=== PATIENT | female | born 1960 | race Caucasian/White ===

== ENCOUNTER 2024-02-15 18:04 | Inpatient (IN) ==
--- NOTE | 2024-02-15 18:48 | Emergency Department Note ---
Impression & Plan Preseptal cellulitis of left eye, Cellulitis, Leukocytosis ED Provider Note NAME: KRISTA HUTTON AGE: 63 SEX: F : 1960 ARRIVES VIA: Walk-In INFORMANT: Patient ED PROVIDER(S): Andrade Davis DO CHIEF COMPLAINT: swelling of left eye HPI: Patient is a 63-year-old female with a past medical history of cervical radiculopathy who presents to the ER for redness and swelling of the left side of the face. Initially started this past Sunday with itching around the eyes and redness. Gradually progressed. She started drops yesterday. She notes that today it swollen shut and she cannot see. She denies any headache or change in vision if she pries her eye open. No pain with movement of the eye. No chest pain or shortness of breath. No nausea, vomiting, or diarrhea. ADDITIONAL HISTORY OBTAINED: Additional history is provided by family who is present at bedside who notes that she does not want to stay in the hospital. Chronic Medical/Social Conditions Affecting Care: Per HPI PAST MEDICAL HISTORY:See Below PAST SURGICAL HISTORY:See Below FAMILY HISTORY:See Below SOCIAL HISTORY:See Below HOME MEDICATIONS:See Below ALLERGIES:See Below VITALS:See Below PHYSICAL EXAMINATION: GENERAL: Sitting up in bed, alert, well appearing, well nourished, no distress, non-toxic EYE EXAM: Lids nearly swollen shut with erythema around the upper and lower lid. Green purulent drainage. Normal conjunctiva. PERRL and EOM's grossly intact. OROPHARYNX: no exudate, no erythema, lips, buccal mucosa, and tongue normal and mucous membranes are moist NECK: supple, no nuchal rigidity, no adenopathy, non-tender LUNGS: Clear to auscultation. Normal chest wall mechanics HEART: no murmurs, S1 normal and S2 normal ABDOMEN: abdomen soft, non-tender, normo-active bowel sounds, no masses, no rebound or guarding. UPPER EXTREMITIES: upper extremities are grossly normal. LOWER EXTREMITIES: No pitting edema. NEURO EXAM: Normal sensorium, cranial nerves II-XII grossly intact, normal speech, no gross weakness of arms, no gross weakness of legs. MEDICAL DECISION MAKING: Patient is a 63-year-old female who presents ER for the above-stated complaint. IV was established blood work was obtained. Labs show leukocytosis of 15,000. No significant anemia. BMP was fairly unremarkable. Clinically on exam she has no pain with movement of her eye. I do feel this consistent with a preseptal cellulitis. External records were reviewed from Dr. Titus's note as he called in. Patient was given IV Rocephin and vancomycin. Patient was given Dilaudid. She is updated bedside. Discussed with the hospitalist. CT of the face does show inflammation/cellulitis. Case was discussed with the hospitalist patient was admitted for further workup of her preseptal cellulitis. There is no abscess on CT. Consults/Care Managements Discussions: Per [facility] Triage Nursing notes reviewed. Limited review of prior medical records performed Vital Signs: reviewed and remarkable for no significant abnormalities Differential diagnosis: Cellulitis, abscess, MRSA infection, DVT, necrotizing fasciitis, dermatitis, drug eruption, allergic reaction, as well as other pathologies. ER treatment provided: See below Diagnostics interpreted by me include EKG and cardiac monitoring as listed below: -Cardiac Monitoring: An order was placed for continuous cardiac monitoring. The monitor shows a rate of 80 with sinus rhythm. -Laboratory studies:Interpreted by me as stated above in MDM and shown below. Imaging studies: Xrays: As interpreted by me: None CTs show: CT of the face described above Procedures: None Critical Care: None Past Med/Surg History Problem List (Updated 02/15/24 @ 22:20 by Andrade Davis DO) Leukocytosis (Acute) Cellulitis (Acute) Preseptal cellulitis of left eye (Acute) Cervical radicular pain (Acute) Social History Smoking Status: Former smoker Tobacco Type: Cigarettes Preferred Language: Hebrew Feels Safe at Home: Yes Allergies Allergies Allergy/AdvReac Type Severity Reaction Status Date / Time yellow dye Allergy Hives Verified 02/15/24 20:20 Home Meds Home Medications Medication Instructions Recorded Confirmed ketoconazole 2 % topical cream 1 applic topical DIRECTED 02/15/24 02/15/24 ketorolac 0.5 % eye drops 1 drp OPB DIRECTED 02/15/24 02/15/24 polymyxin B sulfate 10,000 1 drp OPL DIRECTED 02/15/24 02/15/24 unit-trimethoprim 1 mg/mL eye drops prednisone 20 mg tablet 20 mg PO .TAPER UD 02/15/24 02/15/24 Results & Data (ED) Vital Signs Vital Signs - 24 hr 02/15/24 18:18 02/15/24 19:36 02/15/24 19:36 Temperature 36.7 C Temperature Source Temporal Artery Scan Pulse Rate 79 Pulse Rate [Apical] 75 Respiratory Rate 20 20 Respiratory Effort / Characteristics Non-Labored Spontaneous Respiratory Depth Normal Blood Pressure 123/78 Blood Pressure [Right Arm] 126/68 Blood Pressure Mean 93 Blood Pressure Mean [Right Arm] 87 Pulse Oximetry 92 94 94 Oxygen Delivery Method Room Air Room Air Sepsis Recent Fever Within 48 Hours No Sepsis New/Unexplained Change in Mental Status N/A Sepsis Action Taken by Nursing No Action Required 02/15/24 19:42 Temperature Temperature Source Pulse Rate 73 Pulse Rate [Apical] Respiratory Rate Respiratory Effort / Characteristics Respiratory Depth Blood Pressure Blood Pressure [Right Arm] Blood Pressure Mean Blood Pressure Mean [Right Arm] Pulse Oximetry Oxygen Delivery Method Sepsis Recent Fever Within 48 Hours Sepsis New/Unexplained Change in Mental Status Sepsis Action Taken by Nursing Laboratory Data 02/15/24 18:35 02/15/24 18:35 Lab Results 02/15/24 02/15/24 Range/Units 18:35 18:50 WBC 15.55 H (4.8-10.8) K/ul RBC 4.55 (4.20-5.40) M/uL Hgb 15.5 (12.0-16.0) g/dl POC Hgb 13.9 (12.0-16.0) g/dl Hct 44.9 (37.0-47.0) % POC Hct 41 (37-47) % MCV 98.7 (80.0-100.0) fL MCH 34.1 H (25.0-34.0) pg MCHC 34.5 (32.0-36.0) g/dL RDW Std Deviation 45.2 (36.4-46.3) fL RDW Coeff of Andrea 12.4 (11.5-14.5) % Plt Count 229 (130-400) K/uL MPV 9.6 (9.4-12.4) fL Immature Gran % (Auto) 0.7 % Neut % (Auto) 72.3 % Lymph % (Auto) 20.4 % [place] % (Auto) 5.3 % Eos % (Auto) 1.0 % Baso % (Auto) 0.3 % Neut # (Auto) 11.24 H (1.40-6.50) K/uL Lymph # (Auto) 3.17 (1.20-3.40) K/uL [place] # (Auto) 0.83 H (0.11-0.59) K/uL Eos # (Auto) 0.15 (0.00-0.50) K/uL Baso # (Auto) 0.05 (0.00-0.20) K/uL Immature Gran # (Auto) 0.11 (0.01-0.20) K/uL POC Sodium 136 (135-144) mmol/L Sodium 135 L (136-145) mmol/L POC Potassium 4.2 (3.3-5.0) mmol/L Potassium 3.9 (3.5-5.1) mmol/L POC Chloride 102 (101-112) mmol/L Chloride 101 (98-107) mmol/L Carbon Dioxide 26 (21-32) mmol/L POC Total CO2 24 (24-31) mmol/L Anion Gap 8 (3-11) POC Anion Gap 15.0 L (16-25) mmol/L POC BUN 19 H (7-18) mg/dl BUN 18 (6-23) mg/dl Creatinine 0.79 (0.6-1.2) mg/dl POC Creatinine 0.8 (0.6-1.3) mg/dl Est Cr Clr Drug Dosing 69.9 ml/min Est GFR ( Amer) 92.3 ml/min Est GFR (Non-Af Amer) 79.7 ml/min BUN/Creatinine Ratio 22.8 H (10-20) Glucose 119 H (70-99(Fasting)) mg/dl POC Glucose (other) 117 H (70-99) mg/dl Calcium 10.3 (8.6-10.3) mg/dl POC Ioniz Calcium Randal 1.18 (1.12-1.32) mmol/l Administered Medications Discontinued Medications Hydromorphone HCl (Hydromorphone Inj 0.5 Mg/0.5 Ml Syr) 0.25 mg IV NOW STA Stop: 02/15/24 20:29 Last Admin: 02/15/24 20:33 Dose: 0.25 mg Documented By: SHELLY Vancomycin HCl 1,500 mg/ (Sodium Chloride) 530 mls @ 200 mls/hr IV NOW ONE Stop: 02/15/24 22:04 Last Admin: 02/15/24 19:47 Dose: 200 mls/hr Documented By: SHELLY Ceftriaxone Sodium (Rocephin) 2,000 mg in 50 mls @ 100 mls/hr IV NOW STA Stop: 02/15/24 19:55 Last Infusion: 02/15/24 20:13 Dose: Infused Documented By: Admin: 02/15/24 19:30 Dose: 100 mls/hr Documented By: SHELLY Ioversol (Optiray 320 100ml) 93 ml IV ONCE ONE Stop: 02/15/24 19:22 Last Admin: 02/15/24 19:21 Dose: 93 ml Documented By: KYM Ketorolac Tromethamine (Ketorolac Tromethamine 15 Mg/Ml Vial) 10 mg IV NOW ONE Stop: 02/15/24 19:31 Last Admin: 02/15/24 19:35 Dose: 10 mg Documented By: SHELLY Ofloxacin (Ofloxacin 0.3% 75 Drops/5 Ml Btl) 2 drops OPB NOW STA Stop: 02/15/24 19:32 Last Admin: 02/15/24 19:47 Dose: 2 drops Documented By: SHELLY Imaging Data Radiologist's Impression: Face CT 02/15/24 18:44 Exam(s): CT FACIAL With Contrast IV Amt: 93 ml opti 320 EXAM: CT Maxillofacial With Intravenous Contrast CLINICAL HISTORY: Reason for exam: swelling around left eye. TECHNIQUE: Axial computed tomography images of the face with intravenous contrast. CTDI is 7.19 mGy and DLP is 146.09 mGy-cm. Automated exposure control was utilized for the study. A dose lowering technique was utilized adhering to the principles of ALARA. CONTRAST: Patient received 93 ml opti 320 of IV contrast COMPARISON: None. FINDINGS: Diagnostic sensitivity of the exam is reduced by motion and metallic artifacts. Orbits: Significant left periorbital and left preseptal space soft tissue edema and swelling is demonstrated. (series 301 image 51, series 2 image 17). Bilaterally the intraconal and extraconal orbital spaces are unremarkable. Facial bones/joints: No acute fracture. Remaining soft tissues: Unremarkable. Sinuses: Unremarkable. No air-fluid levels. Other findings: At C5-C6: Moderate degenerative disc/endplate spondylitic changes. . IMPRESSION: Motion artifact. Left periorbital and left preseptal space soft tissue edema/swelling. No facial bone acute fracture identified. . Electronically signed by: Jossie Barker MD, ROMIE 02/15/24 20:13 PM Discharge Plan Visit Data Chief Complaint: Eye Problems Stated Complaint: CELLULITIS IN LT EYE/EDEMA/PAIN ED Provider: Andrade Davis Discharge Problem: Preseptal cellulitis of left eye, Cellulitis, Leukocytosis Patient Disposition: Admitted As Inpatient Discharge Instructions Interventions: ED Discharge Assessment Last Done: 02/15/24 21:47 Discharge Problem: Cellulitis Qualifiers: Site of cellulitis: periorbital Laterality: left Qualified Code(s): L03.213 - Periorbital cellulitis Leukocytosis Qualifiers: Leukocytosis type: unspecified Qualified Code(s): D72.829 - Elevated white blood cell count, unspecified
[2024-02-15 18:57] LABS: Basophils # (auto) 0.05 K/uL (0.00-0.20); Basophils % (auto) 0.3 %; Eosinophils # (auto) 0.15 K/uL (0.00-0.50); Hematocrit (blood only) 44.9 % (37.0-47.0); Hemoglobin 15.5 g/dl (12.0-16.0); Immature Granulocytes # (auto) 0.11 K/uL (0.01-0.20); Immature Granulocytes % (auto) 0.7 %; Lymphocytes # (auto) 3.17 K/uL (1.20-3.40); Lymphocytes % (auto) 20.4 %; Mean Corpuscular Hemoglobin 34.1 pg (25.0-34.0); Mean Corpuscular Hgb Conc 34.5 g/dL (32.0-36.0); Mean Corpuscular Volume 98.7 fL (80.0-100.0); Mean Platelet Volume 9.6 fL (9.4-12.4); Monocytes # (auto) 0.83 K/uL (0.11-0.59); Monocytes % (auto) 5.3 %; Neutrophils # (auto) 11.24 K/uL (1.40-6.50); Neutrophils % (auto) 72.3 %; Platelet Count 229 K/uL (130-400); RDW Coefficient of Variation 12.4 % (11.5-14.5); RDW Standard Deviation 45.2 fL (36.4-46.3); Red Blood Count 4.55 M/uL (4.20-5.40); White Blood Count 15.55 K/ul (4.8-10.8)
[2024-02-15 19:04] LABS: iSTAT Creatinine 0.8 mg/dl (0.6-1.3); iSTAT Hemoglobin 13.9 g/dl (12.0-16.0); iSTAT Ionized Calcium 1.18 mmol/l (1.12-1.32); iSTAT Potassium 4.2 mmol/L (3.3-5.0)
[2024-02-15 19:16] LABS: BUN Creatinine Ratio 22.8 (10-20); Calcium 10.3 mg/dl (8.6-10.3); Creatinine Clr Calc Pharmacy 69.9 ml/min; Est GFR (African American) 92.3 ml/min; Est GFR (Non-African American) 79.7 ml/min; Potassium 3.9 mmol/L (3.5-5.1)
[2024-02-15] MEDS: OPTIRAY 320 100ml IV ONE (19:21)
[2024-02-15] MEDS ORDERED: VANCOMYCIN CONSULT ACTIVE PRN (19:26)
[2024-02-15] MEDS: cefTRIAXone SODIUM 2,000 MG/50 ML BAG IV STA (19:30)
[2024-02-15] MEDS: KETOROLAC TROMETHAMINE 15 MG/ML VIAL IV ONE (19:35)
[2024-02-15] MEDS: VANCOMYCIN HCL 1,500 MG in SODIUM CHLORIDE 0.9% 500 ML IV ONE (19:47)
[2024-02-15] MEDS: OFLOXACIN 0.3% 75 DROPS/5 ML BTL OPB STA (19:47)
--- NOTE | 2024-02-15 20:14 | CT Scan Report ---
Exam(s): CT FACIAL With Contrast IV Amt: 93 ml opti 320 EXAM: CT Maxillofacial With Intravenous Contrast CLINICAL HISTORY: Reason for exam: swelling around left eye. TECHNIQUE: Axial computed tomography images of the face with intravenous contrast. CTDI is 7.19 mGy and DLP is 146.09 mGy-cm. Automated exposure control was utilized for the study. A dose lowering technique was utilized adhering to the principles of ALARA. CONTRAST: Patient received 93 ml opti 320 of IV contrast COMPARISON: None. FINDINGS: Diagnostic sensitivity of the exam is reduced by motion and metallic artifacts. Orbits: Significant left periorbital and left preseptal space soft tissue edema and swelling is demonstrated. (series 301 image 51, series 2 image 17). Bilaterally the intraconal and extraconal orbital spaces are unremarkable. Facial bones/joints: No acute fracture. Remaining soft tissues: Unremarkable. Sinuses: Unremarkable. No air-fluid levels. Other findings: At C5-C6: Moderate degenerative disc/endplate spondylitic changes. . IMPRESSION: Motion artifact. Left periorbital and left preseptal space soft tissue edema/swelling. No facial bone acute fracture identified. . Electronically signed by: Jossie Barker MD, DABR 02/15/24 20:13 PM
[2024-02-15] MEDS: HYDROmorphone INJ 0.5 MG/0.5 ML SYR IV STA (20:33)
--- NOTE | 2024-02-15 20:41 | History & Physical Report ---
Date of Service February 15, 2024 Assessment & Plan (1) Preseptal cellulitis of left eye: Plan: 63-year-old female with past medical history significant for dyslipidemia presents with swelling and pain around the left eye. Started Sunday but got progressively worse. Left eyelid is significantly swollen. No pain on movement of eyes. No injury to the area. No recent sinus infection. No dental pain. Having headaches. Vision is okay. No runny nose or sore throat. No cough. No difficulty swallowing. No chest pain or shortness of breath. No nausea. No abdominal pain. Normal bowel and bladder movements. Ambulating okay. Hemodynamics are okay. Preseptal cellulitis of left eye No painful eye movements No obvious proptosis seen Facial CT shows left periorbital and left preseptal space soft tissue edema/swelling On empiric IV Vanco and Rocephin and ofloxacin drops d/w ophthalmology on tiger text: "As ct scan not showing orbital involvement was advised to continue antibiotics and monitor for change to painful eye movements, decrease in vision or if the eye itself becomes red which would be signs of orbital involvement be signs of orbital involvement" Pain control Close monitor DVT prophylaxis SCDs. Disposition Medical floor History of Present Illness Chief Complaint: Left eye preseptal cellulitis Primary Care Provider: Reyes De La Garza MD 63-year-old female with past medical history significant for dyslipidemia presents with swelling and pain around the left eye. Started Sunday but got progressively worse. Left eyelid is significantly swollen. No pain on movement of eyes. No injury to the area. No recent sinus infection. No dental pain. Having headaches. Vision is okay. No runny nose or sore throat. No cough. No difficulty swallowing. No chest pain or shortness of breath. No nausea. No abdominal pain. Normal bowel and bladder movements. Ambulating okay. Hemodynamics are okay. Past medical history. As mentioned above Past surgical history. Dental surgery. Oophorectomy. Total abdominal hysterectomy Social history. . Smoked 0.5 pack a day for 10 years. Alcohol rarely. No drug use. Family history. Father had cancer. Mother had CHF and valvular heart disease. Allergies Allergy/AdvReac Type Severity Reaction Status Date / Time yellow dye Allergy Hives Verified 02/15/24 20:20 Home Medications Medication Instructions Recorded Confirmed Type ketoconazole 2 % topical cream 1 applic topical DIRECTED 02/15/24 02/15/24 History ketorolac 0.5 % eye drops 1 drp OPB DIRECTED 02/15/24 02/15/24 History polymyxin B sulfate 10,000 1 drp OPL DIRECTED 02/15/24 02/15/24 History unit-trimethoprim 1 mg/mL eye drops prednisone 20 mg tablet 20 mg PO .TAPER UD 02/15/24 02/15/24 History Past Med/Surg History Problem List (Updated 02/15/24 @ 22:20 by Andrade Davis, ) Leukocytosis (Acute) Cellulitis (Acute) Preseptal cellulitis of left eye (Acute) Cervical radicular pain (Acute) Social History Smoking Status: Current every day smoker Tobacco Type: Cigarettes Cigarettes Per Day: pack a day; Second Hand Exposure: No; Do You Dip or Chew Tobacco: No; Tobacco Cessation Education Requested by Patient: No Hx Alcohol Use: No Hx Substance Use: No Preferred Language: Faroese Communication Ability: Effective Physics Department Chair Required: No Beliefs That Will Affect Care: None Current Living Situation: Spouse Feels Safe at Home: Yes Safety Concerns: Feels Safe At This Time Review of Systems Review of Systems: All systems reviewed & are unremarkable except as noted in HPI & below Physical Exam Physical Exam: General- Not in acute distress. Head- atraumatic Eyes- Left eye region swollen and mildly erythematous. EOMI, no painful eye movement, vision ok ENT- oropharynx clear Neck- supple, no JVD Lungs- clear to auscultation no wheezing or crackles. Heart- regular rhythm; no murmur, no gallop. Abdomen- normal bowel sounds, soft, nontender, no distension Extremities- no pretibial edema, no erythema seen. Neuro- alert, oriented EOMI; no facial palsy; no dysarthria; moves extremities Results & Data Results & Data Vital Signs (Past 12 Hours) Vital Signs Temp Pulse Pulse Resp BP BP Pulse Ox 02/15/24 19:42 73 02/15/24 19:36 94 02/15/24 19:36 75 20 126/68 94 02/15/24 18:18 36.7 C 79 20 123/78 92 O2 Del Method 02/15/24 19:42 02/15/24 19:36 Room Air 02/15/24 19:36 02/15/24 18:18 Room Air Diagnostic Findings Laboratory Results WBC 15.55 K/ul (4.8-10.8) H 02/15/24 18:35 RBC 4.55 M/uL (4.20-5.40) 02/15/24 18:35 Hgb 15.5 g/dl (12.0-16.0) 02/15/24 18:35 POC Hgb 13.9 g/dl (12.0-16.0) 02/15/24 18:50 Hct 44.9 % (37.0-47.0) 02/15/24 18:35 POC Hct 41 % (37-47) 02/15/24 18:50 MCV 98.7 fL (80.0-100.0) 02/15/24 18:35 MCH 34.1 pg (25.0-34.0) H 02/15/24 18:35 MCHC 34.5 g/dL (32.0-36.0) 02/15/24 18:35 RDW Std Deviation 45.2 fL (36.4-46.3) 02/15/24 18:35 RDW Coeff of Andrea 12.4 % (11.5-14.5) 02/15/24 18:35 Plt Count 229 K/uL (130-400) 02/15/24 18:35 MPV 9.6 fL (9.4-12.4) 02/15/24 18:35 Immature Gran % (Auto) 0.7 % 02/15/24 18:35 Neut % (Auto) 72.3 % 02/15/24 18:35 Lymph % (Auto) 20.4 % 02/15/24 18:35 [place] % (Auto) 5.3 % 02/15/24 18:35 Eos % (Auto) 1.0 % 02/15/24 18:35 Baso % (Auto) 0.3 % 02/15/24 18:35 Neut # (Auto) 11.24 K/uL (1.40-6.50) H 02/15/24 18:35 Lymph # (Auto) 3.17 K/uL (1.20-3.40) 02/15/24 18:35 [place] # (Auto) 0.83 K/uL (0.11-0.59) H 02/15/24 18:35 Eos # (Auto) 0.15 K/uL (0.00-0.50) 02/15/24 18:35 Baso # (Auto) 0.05 K/uL (0.00-0.20) 02/15/24 18:35 Immature Gran # (Auto) 0.11 K/uL (0.01-0.20) 02/15/24 18:35 POC Sodium 136 mmol/L (135-144) 02/15/24 18:50 Sodium 135 mmol/L (136-145) L 02/15/24 18:35 POC Potassium 4.2 mmol/L (3.3-5.0) 02/15/24 18:50 Potassium 3.9 mmol/L (3.5-5.1) 02/15/24 18:35 POC Chloride 102 mmol/L (101-112) 02/15/24 18:50 Chloride 101 mmol/L (98-107) 02/15/24 18:35 Carbon Dioxide 26 mmol/L (21-32) 02/15/24 18:35 POC Total CO2 24 mmol/L (24-31) 02/15/24 18:50 Anion Gap 8 (3-11) 02/15/24 18:35 POC Anion Gap 15.0 mmol/L (16-25) L 02/15/24 18:50 POC BUN 19 mg/dl (7-18) H 02/15/24 18:50 BUN 18 mg/dl (6-23) 02/15/24 18:35 Creatinine 0.79 mg/dl (0.6-1.2) 02/15/24 18:35 POC Creatinine 0.8 mg/dl (0.6-1.3) 02/15/24 18:50 Est Cr Clr Drug Dosing 69.9 ml/min 02/15/24 18:35 Est GFR ( Amer) 92.3 ml/min 02/15/24 18:35 Est GFR (Non-Af Amer) 79.7 ml/min 02/15/24 18:35 BUN/Creatinine Ratio 22.8 (10-20) H 02/15/24 18:35 Glucose 119 mg/dl (70-99(Fasting)) H 02/15/24 18:35 POC Glucose (other) 117 mg/dl (70-99) H 02/15/24 18:50 Calcium 10.3 mg/dl (8.6-10.3) 02/15/24 18:35 POC Ioniz Calcium Randal 1.18 mmol/l (1.12-1.32) 02/15/24 18:[address] 02/15/24 18:44 Exam(s): CT FACIAL With Contrast IV Amt: 93 ml opti 320 EXAM: CT Maxillofacial With Intravenous Contrast CLINICAL HISTORY: Reason for exam: swelling around left eye. TECHNIQUE: Axial computed tomography images of the face with intravenous contrast. CTDI is 7.19 mGy and DLP is 146.09 mGy-cm. Automated exposure control was utilized for the study. A dose lowering technique was utilized adhering to the principles of ALARA. CONTRAST: Patient received 93 ml opti 320 of IV contrast COMPARISON: None. FINDINGS: Diagnostic sensitivity of the exam is reduced by motion and metallic artifacts. Orbits: Significant left periorbital and left preseptal space soft tissue edema and swelling is demonstrated. (series 301 image 51, series 2 image 17). Bilaterally the intraconal and extraconal orbital spaces are unremarkable. Facial bones/joints: No acute fracture. Remaining soft tissues: Unremarkable. Sinuses: Unremarkable. No air-fluid levels. Other findings: At C5-C6: Moderate degenerative disc/endplate spondylitic changes. . IMPRESSION: Motion artifact. Left periorbital and left preseptal space soft tissue edema/swelling. No facial bone acute fracture identified. . Electronically signed by: Jossie Barker MD, ROMIE 02/15/24 20:13 PM Code Status & VTE Plan VTE Prophylaxis Plan VTE Prophylaxis will be ordered: Yes
[2024-02-15] MEDS ORDERED: ACETAMINOPHEN 325 MG TAB PO PRN (21:54)
[2024-02-15] MEDS: ENOXAPARIN INJ 40 MG/0.4 ML SYR SQ SCH (22:25)
[2024-02-15] MEDS: SODIUM CHLORIDE 0.9% 1,000 ML IV SCH (22:38)
[2024-02-15] MEDS: HYDROmorphone INJ 0.5 MG/0.5 ML SYR IV PRN (22:39)
[2024-02-16] MEDS: OFLOXACIN 0.3% 75 DROPS/5 ML BTL OP SCH (00:02)
[2024-02-16 05:00] LABS: Appearance Urine Turbid (Clear); Bacteria Urine Automated 2+ (None Seen); Bilirubin Urine Negative (Negative); Blood Urine 1+ (Negative); Cast Urine Automated 0-2 /lpf (0-2); Color Urine Yellow; Glucose Urine UA Negative (Negative); Ketones Urine Negative (Negative); Leukocyte Esterase Urine 3+ (Negative); Nitrite Urine Positive (Negative); Protein Urine Trace (Negative); RBC Urine Automated 0-2 /hpf (0-2); Specific Gravity Urine > 1.045 (1.000-1.030); Urobilinogen Urine Negative (Negative); WBC Urine Automated >50 /hpf (0-5); pH Urine 5.5 (4.5-7.5)
[2024-02-16] MEDS: VANCOMYCIN HCL 1,000 MG in SODIUM CHLORIDE 0.9% 250 ML IV SCH (05:18)
[2024-02-16 05:53] LABS: Basophils # (auto) 0.04 K/uL (0.00-0.20); Basophils % (auto) 0.4 %; Eosinophils # (auto) 0.52 K/uL (0.00-0.50); Eosinophils % (auto) 5.4 %; Hematocrit (blood only) 37.9 % (37.0-47.0); Hemoglobin 12.8 g/dl (12.0-16.0); Immature Granulocytes # (auto) 0.03 K/uL (0.01-0.20); Immature Granulocytes % (auto) 0.3 %; Lymphocytes # (auto) 3.29 K/uL (1.20-3.40); Lymphocytes % (auto) 34.3 %; Mean Corpuscular Hemoglobin 34.1 pg (25.0-34.0); Mean Corpuscular Hgb Conc 33.8 g/dL (32.0-36.0); Mean Corpuscular Volume 101.1 fL (80.0-100.0); Mean Platelet Volume 9.3 fL (9.4-12.4); Monocytes # (auto) 0.69 K/uL (0.11-0.59); Monocytes % (auto) 7.2 %; Neutrophils # (auto) 5.03 K/uL (1.40-6.50); Neutrophils % (auto) 52.4 %; Platelet Count 170 K/uL (130-400); RDW Coefficient of Variation 12.5 % (11.5-14.5); RDW Standard Deviation 46.2 fL (36.4-46.3); Red Blood Count 3.75 M/uL (4.20-5.40)
[2024-02-16 06:09] LABS: BUN Creatinine Ratio 22.4 (10-20); Calcium 8.6 mg/dl (8.6-10.3); Creatinine Clr Calc Pharmacy 72.7 ml/min; Est GFR (African American) 96.8 ml/min; Est GFR (Non-African American) 83.5 ml/min; Magnesium 1.7 mg/dl (1.7-2.4); Potassium 3.6 mmol/L (3.5-5.1)
[2024-02-16] MEDS: diphenhydrAMINE HCL 25 MG/10 ML UDC PO PRN (09:02)
--- NOTE | 2024-02-16 09:37 | Pharmacy Report ---
Pharmacy PK ABX Note - Date of Service February 16, 2024 - Assessment and Plan Assessment 63 year old F receiving vancomycin and ceftriaxone for treatment of preseptal cellulitis. Renal function stable. WBC 15.6 --> 9.6. Day #2 of antimicrobial therapy. Plan Vancomycin * Loading dose: 1500 mg IV x 1 * Maintenance dose: 1000 mg IV every 12 hours * Regimen is predicted to achieve target AUC/CAMERON of 400-600 mg/L.hr * Will obtain a level if therapy continues beyond 48h. Pharmacy will continue to follow and will adjust dose/frequency as necessary. Thank you. Pharmacy has transitioned to AUC monitoring for vancomycin. AUC/CAMERON is the prefe rred PK/PD target and is associated with decreased risk of nephrotoxicity compared to traditional trough targets.
[2024-02-16] MEDS: predniSONE 20 MG TAB PO SCH ×2 (10:05→20:13)
[2024-02-16] MEDS: diphenhydrAMINE HCL 25 MG/10 ML UDC PO SCH (11:11)
[2024-02-16] MEDS: FAMOTIDINE 10 MG TABLET PO SCH (13:10)
[2024-02-16] MEDS: TRIAMCINOLONE ACET 0.1% OINT 80 GM TUBE EXT SCH (13:11)
[2024-02-16] MEDS: HYDROCORTISONE 2.5% CR 30 GM TUBE EXT SCH (13:11)
--- NOTE | 2024-02-16 14:07 | Hospitalist Progress Note ---
Date of Service February 16, 2024 Assessment & Plan (1) Preseptal cellulitis of left eye: Plan: Patient is a 63-year-old female with past medical history significant for dyslipidemia presents with swelling and pain around the left eye. Started Sunday but got progressively worse. Left eyelid is significantly swollen. No pain on movement of eyes. No injury to the area. No recent sinus infection. No dental pain. Having headaches. Vision is okay. No runny nose or sore throat. No cough. No difficulty swallowing. No chest pain or shortness of breath. No nausea. No abdominal pain. Normal bowel and bladder movements. Ambulating okay. Hemodynamics are okay. Bilateral Preseptal cellulitis Extensive erythematous rash--likely allergic --Face CT:Left periorbital and left preseptal space soft tissue edema/swelling. No facial bone acute fracture identified. -- Nasal MRSA negative -- Empirically on IV Vanco and Rocephin>> discontinue Vanco and add Doxy -- Also on ofloxacin eyedrops -- Admitting team discussed with ophthalmology currently no concern for orbital cellulitis --Discussed with dermatology on 02/16/2024: Possible allergic. Agrees with prednisone, Benadryl. Recommends topical hydrocortisone for face, triamcinolone cream on all other areas for 10 days. Also recommends prednisone taper course over 12 to 14 days Pain control Will recommend to follow-up with allergy immunology as outpatient Continue IV fluids Suspected right upper lobe lung mass Lung opacities Can not exclude malignancy --CXR:Diffuse interstitial thickening. Although nonspecific, the appearance favors pulmonary edema or interstitial lung disease. A superimposed infectious process cannot be excluded given lower lung opacities. Vague 3 cm oval-shaped right upper lung density. Radiographic follow-up to ensure resolution is recommended to exclude the possibility of an underlying pulmonary lesion. --CT Head:No acute intracranial hemorrhage, no evidence of acute territorial infarction or other acute intracranial disease process. -- Denies any respiratory symptoms currently Will obtain CT chest Further management based on CT results Abnormal urinalysis Suspected UTI Urine culture pending Empirically on IV Rocephin as above DVT Px: SCDs for now CODE STATUS Full code Admission and Anticipated Discharge Date Admission Date: February 15, 2024 Subjective Patient is seen and examined at bedside Reports itchy erythematous rash on multiple areas Also reports bilateral eye swelling Denies any blurry vision, eye pain, photophobia, tongue swelling, chest pain, dyspnea, nausea, vomiting, abdominal pain Discussed with dermatology today Review of Systems Review of Systems: All systems reviewed & are unremarkable except as noted in Subjective Physical Exam Physical Exam: Physical Exam: Vitals signs as noted above General Appearance:Moderately built and nourished, no apparent distress Head: normocephalic, Atraumatic Eyes: normal inspection, EOMI, periorbital swelling, mild erythema Neck: supple, Trachea midline Respiratory/Chest: Normal breath sounds, CTA, No accessory muscle use Cardiovascular: S1, S2, No murmur Abdomen/GI:Soft, Non tender, Bowel sounds present Extremities/Musculoskeletal:normal inspection, no edema Neurologic/Psych:AAOX3, grossly no focal neurological deficits Skin: normal color, warm,+ erythematous blotchy rash on posterior neck, bilateral under the breast, sacral/anal region Results & Data Results & Data Vital Signs (Past 12 Hours) Vital Signs Temp Pulse Resp BP Pulse Ox O2 Del Method 02/16/24 08:10 94 Room Air 02/16/24 07:15 36.9 C 66 18 124/72 90 Room Air Laboratory Results Short CBC 02/15/24 02/16/24 Range/Units 18:35 05:34 WBC 15.55 H 9.60 (4.8-10.8) K/ul Hgb 15.5 12.8 (12.0-16.0) g/dl Hct 44.9 37.9 (37.0-47.0) % Plt Count 229 170 (130-400) K/uL BMP 02/15/24 02/16/24 18:35 05:34 Sodium 135 L 136 Potassium 3.9 3.6 Chloride 101 107 Carbon Dioxide 26 24 BUN 18 17 Creatinine 0.79 0.76 Glucose 119 H 98 Calcium 10.3 8.6 Urine 02/16/24 Range/Units 04:35 Urine Color Yellow Urine Appearance Turbid A (Clear) Urine pH 5.5 (4.5-7.5) Ur Specific [place] > 1.045 H (1.000-1.030) Urine Protein Trace H (Negative) Urine Glucose (UA) Negative (Negative)
[2024-02-16] MEDS: cefTRIAXone SODIUM 2,000 MG/50 ML BAG IV SCH (20:08)
[2024-02-16] MEDS: DOXYCYCLINE HYCLATE 100 MG CAP PO SCH (20:13)
[2024-02-17 06:43] LABS: Hematocrit (blood only) 35.8 % (37.0-47.0); Hemoglobin 12.5 g/dl (12.0-16.0); Mean Corpuscular Hemoglobin 34.2 pg (25.0-34.0); Mean Corpuscular Hgb Conc 34.9 g/dL (32.0-36.0); Mean Corpuscular Volume 97.8 fL (80.0-100.0); Mean Platelet Volume 9.7 fL (9.4-12.4); Platelet Count 181 K/uL (130-400); RDW Coefficient of Variation 12.1 % (11.5-14.5); RDW Standard Deviation 43.8 fL (36.4-46.3); Red Blood Count 3.66 M/uL (4.20-5.40)
[2024-02-17 07:06] LABS: BUN Creatinine Ratio 22.4 (10-20); Calcium 8.5 mg/dl (8.6-10.3); Creatinine Clr Calc Pharmacy 95.2 ml/min; Est GFR (African American) 113.7 ml/min; Est GFR (Non-African American) 98.1 ml/min; Magnesium 1.7 mg/dl (1.7-2.4); Potassium 3.9 mmol/L (3.5-5.1)
--- NOTE | 2024-02-17 15:18 | Hospitalist Progress Note ---
Date of Service February 17, 2024 Assessment & Plan (1) Preseptal cellulitis of left eye: Plan: Patient is a 63-year-old female with past medical history significant for dyslipidemia presents with swelling and pain around the left eye. Started Sunday but got progressively worse. Left eyelid is significantly swollen. No pain on movement of eyes. No injury to the area. No recent sinus infection. No dental pain. Having headaches. Vision is okay. No runny nose or sore throat. No cough. No difficulty swallowing. No chest pain or shortness of breath. No nausea. No abdominal pain. Normal bowel and bladder movements. Ambulating okay. Hemodynamics are okay. Bilateral Preseptal cellulitis Extensive erythematous rash--likely allergic --Face CT:Left periorbital and left preseptal space soft tissue edema/swelling. No facial bone acute fracture identified. -- Nasal MRSA negative -- Empirically on IV Vanco and Rocephin>> discontinue Vanco and add Doxy -- Also on ofloxacin eyedrops -- Admitting team discussed with ophthalmology currently no concern for orbital cellulitis --Discussed with dermatology on 02/16/2024: Possible allergic. Agrees with prednisone, Benadryl. Recommends topical hydrocortisone for face, triamcinolone cream on all other areas for 10 days. Also recommends prednisone taper course over 12 to 14 days Pain control Will recommend to follow-up with allergy immunology as outpatient Received IV fluids Continue current management Suspected right upper lobe lung mass Lung opacities Can not exclude malignancy --CXR:Diffuse interstitial thickening. Although nonspecific, the appearance favors pulmonary edema or interstitial lung disease. A superimposed infectious process cannot be excluded given lower lung opacities. Vague 3 cm oval-shaped right upper lung density. Radiographic follow-up to ensure resolution is recommended to exclude the possibility of an underlying pulmonary lesion. --CT Head:No acute intracranial hemorrhage, no evidence of acute territorial infarction or other acute intracranial disease process. -- Denies any respiratory symptoms currently Patient refused CT chest Was advised to follow-up as outpatient Abnormal urinalysis Suspected UTI Urine culture--preliminary negative Empirically on IV Rocephin as above DVT Px: SCDs for now CODE STATUS Full code Admission and Anticipated Discharge Date Admission Date: February 15, 2024 Subjective Patient is seen and examined at bedside Left eye periorbital swelling better today Right eye periorbital swelling persistent Still has erythematous rash, itching resolved No new complaints Denies any blurry vision, eye pain, photophobia, tongue swelling, chest pain, dyspnea, nausea, vomiting, abdominal pain Review of Systems Review of Systems: All systems reviewed & are unremarkable except as noted in Subjective Physical Exam Physical Exam: Physical Exam: Vitals signs as noted above General Appearance:Moderately built and nourished, no apparent distress Head: normocephalic, Atraumatic Eyes: normal inspection, EOMI, periorbital swelling, mild erythema Neck: supple, Trachea midline Respiratory/Chest: Normal breath sounds, CTA, No accessory muscle use Cardiovascular: S1, S2, No murmur Abdomen/GI:Soft, Non tender, Bowel sounds present Extremities/Musculoskeletal:normal inspection, no edema Neurologic/Psych:AAOX3, grossly no focal neurological deficits Skin: normal color, warm,+ erythematous blotchy rash on posterior neck, bilateral under the breast, sacral/anal region Results & Data Results & Data Vital Signs (Past 12 Hours) Vital Signs Temp Pulse Resp BP Pulse Ox O2 Del Method 02/17/24 14:36 36.9 C 72 18 146/78 H 92 Room Air 02/17/24 07:10 36.7 C 80 18 140/77 94 Room Air Laboratory Results Short CBC 02/17/24 Range/Units 06:02 WBC 8.30 (4.8-10.8) K/ul Hgb 12.5 (12.0-16.0) g/dl Hct 35.8 L (37.0-47.0) % Plt Count 181 (130-400) K/uL BMP 02/17/24 06:02 Sodium 135 L Potassium 3.9 Chloride 106 Carbon Dioxide 21 BUN 13 Creatinine 0.58 L Glucose 109 H Calcium 8.5 L
[2024-02-18 06:36] LABS: Hematocrit (blood only) 37.4 % (37.0-47.0); Hemoglobin 12.9 g/dl (12.0-16.0); Mean Corpuscular Hemoglobin 34.4 pg (25.0-34.0); Mean Corpuscular Hgb Conc 34.5 g/dL (32.0-36.0); Mean Corpuscular Volume 99.7 fL (80.0-100.0); Mean Platelet Volume 9.6 fL (9.4-12.4); Platelet Count 181 K/uL (130-400); RDW Coefficient of Variation 12.3 % (11.5-14.5); RDW Standard Deviation 44.7 fL (36.4-46.3); Red Blood Count 3.75 M/uL (4.20-5.40); White Blood Count 8.84 K/ul (4.8-10.8)
[2024-02-18 06:57] LABS: BUN Creatinine Ratio 17.1 (10-20); Creatinine Clr Calc Pharmacy 72.7 ml/min; Est GFR (African American) 96.8 ml/min; Est GFR (Non-African American) 83.5 ml/min; Potassium 4.2 mmol/L (3.5-5.1)
[2024-02-18] MEDS: oxyCODONE/ACETAMINOPHEN 5mg/325mg TAB PO PRN (12:17)
[2024-02-18 15:15] VITALS: RESP 16
--- NOTE | 2024-02-18 15:47 | Hospitalist Progress Note ---
Date of Service February 18, 2024 Assessment & Plan (1) Preseptal cellulitis of left eye: Plan: Patient is a 63-year-old female with past medical history significant for dyslipidemia presents with swelling and pain around the left eye. Started Sunday but got progressively worse. Left eyelid is significantly swollen. No pain on movement of eyes. No injury to the area. No recent sinus infection. No dental pain. Having headaches. Vision is okay. No runny nose or sore throat. No cough. No difficulty swallowing. No chest pain or shortness of breath. No nausea. No abdominal pain. Normal bowel and bladder movements. Ambulating okay. Hemodynamics are okay. Bilateral Preseptal cellulitis Extensive erythematous rash--likely allergic --Face CT:Left periorbital and left preseptal space soft tissue edema/swelling. No facial bone acute fracture identified. -- Nasal MRSA negative -- Empirically on IV Vanco and Rocephin>> discontinue Vanco and add Doxy -- Also on ofloxacin eyedrops -- Admitting team discussed with ophthalmology currently no concern for orbital cellulitis --Discussed with dermatology on 02/16/2024: Possible allergic. Agrees with prednisone, Benadryl. Recommends topical hydrocortisone for face, triamcinolone cream on all other areas for 10 days. Also recommends prednisone taper course over 12 to 14 days Pain control Will recommend to follow-up with allergy immunology as outpatient Received IV fluids Clinically improving Will transition to p.o. antibiotics likely tomorrow Likely discharge in 1 to 2 days Suspected right upper lobe lung mass Lung opacities Can not exclude malignancy --CXR:Diffuse interstitial thickening. Although nonspecific, the appearance f avors pulmonary edema or interstitial lung disease. A superimposed infectious process cannot be excluded given lower lung opacities. Vague 3 cm oval-shaped right upper lung density. Radiographic follow-up to ensure resolution is recommended to exclude the possibility of an underlying pulmonary lesion. --CT Head:No acute intracranial hemorrhage, no evidence of acute territorial infarction or other acute intracranial disease process. -- Denies any respiratory symptoms currently Patient refused CT chest--discussed on multiple occasions Was advised to follow-up as outpatient Abnormal urinalysis UTI ruled out Urine culture--negative DVT Px: SCDs for now CODE STATUS Full code Admission and Anticipated Discharge Date Admission Date: February 15, 2024 Subjective Patient is seen and examined at bedside States feeling better today Erythematous rash slowly improving Itching controlled with Benadryl Periorbital swelling slowly improving Denies any blurry vision, eye pain, photophobia, tongue swelling, chest pain, dyspnea, nausea, vomiting, abdominal pain Review of Systems Review of Systems: All systems reviewed & are unremarkable except as noted in Subjective Physical Exam Physical Exam: Physical Exam: Vitals signs as noted above General Appearance:Moderately built and nourished, no apparent distress Head: normocephalic, Atraumatic Eyes: normal inspection, EOMI, periorbital swelling, mild erythema Neck: supple, Trachea midline Respiratory/Chest: Normal breath sounds, CTA, No accessory muscle use Cardiovascular: S1, S2, No murmur Abdomen/GI:Soft, Non tender, Bowel sounds present Extremities/Musculoskeletal:normal inspection, no edema Neurologic/Psych:AAOX3, grossly no focal neurological deficits Skin: normal color, warm,+ erythematous blotchy rash on posterior neck, bilateral under the breast, sacral/anal region Results & Data Results & Data Vital Signs (Past 12 Hours) Vital Signs Temp Pulse Pulse Resp BP Pulse Ox O2 Del Method 02/18/24 15:14 36.7 C 58 L 16 154/79 H 93 Room Air 02/18/24 11:55 36.4 C L 73 18 128/68 96 Room Air 02/18/24 08:00 36.6 C 57 L 18 154/78 H 95 Room Air 02/18/24 07:20 Room Air Laboratory Results Short CBC 02/18/24 Range/Units 06:06 WBC 8.84 (4.8-10.8) K/ul Hgb 12.9 (12.0-16.0) g/dl Hct 37.4 (37.0-47.0) % Plt Count 181 (130-400) K/uL BMP 02/18/24 06:06 Sodium 138 Potassium 4.2 Chloride 105 Carbon Dioxide 27 BUN 13 Creatinine 0.76 Glucose 98 Calcium 9.0
[2024-02-18] MEDS: HYDROmorphone INJ 0.5 MG/0.5 ML SYR IV PRN (17:51)
[2024-02-18 20:06] VITALS: TEMP 97.7
[2024-02-18] MEDS: POLYETHYLENE (MIRALAX) 17 GM PACK PO PRN (20:09)
[2024-02-19 07:21] VITALS: BP 155/80; PULSE 57; O2SAT 97
--- NOTE | 2024-02-19 12:26 | Hospitalist Progress Note ---
Date of Service February 19, 2024 Assessment & Plan (1) Preseptal cellulitis of left eye: Plan: Patient is a 63-year-old female with past medical history significant for dyslipidemia presents with swelling and pain around the left eye. Started Sunday but got progressively worse. Left eyelid is significantly swollen. No pain on movement of eyes. No injury to the area. No recent sinus infection. No dental pain. Having headaches. Vision is okay. No runny nose or sore throat. No cough. No difficulty swallowing. No chest pain or shortness of breath. No nausea. No abdominal pain. Normal bowel and bladder movements. Ambulating okay. Hemodynamics are okay. Bilateral Preseptal cellulitis Extensive erythematous rash--likely allergic --Face CT:Left periorbital and left preseptal space soft tissue edema/swelling. No facial bone acute fracture identified. -- Nasal MRSA negative -- Empirically on IV Vanco and Rocephin>> discontinue Vanco and add Doxy -- Also on ofloxacin eyedrops -- Admitting team discussed with ophthalmology currently no concern for orbital cellulitis --Discussed with dermatology on 02/16/2024: Possible allergic. Agrees with prednisone, Benadryl. Recommends topical hydrocortisone for face, triamcinolone cream on all other areas for 10 days. Also recommends prednisone taper course over 12 to 14 days Pain control Will recommend to follow-up with allergy immunology as outpatient Received IV fluids Clinically improving. Plan to be discharged home today Advised to follow-up with dermatology, ophthalmology as outpatient Suspected right upper lobe lung mass Lung opacities Can not exclude malignancy --CXR:Diffuse interstitial thickening. Although nonspecific, the appearance favors pulmonary edema or interstitial lung disease. A superimposed infectious process cannot be excluded given lower lung opacities. Vague 3 cm oval-shaped right upper lung density. Radiographic follow-up to ensure resolution is recommended to exclude the possibility of an underlying pulmonary lesion. --CT Head:No acute intracranial hemorrhage, no evidence of acute territorial inf arction or other acute intracranial disease process. -- Denies any respiratory symptoms currently Patient refused CT chest--discussed on multiple occasions Was advised to follow-up as outpatient Abnormal urinalysis UTI ruled out Urine culture--negative CODE STATUS Full code Disposition Home Admission and Anticipated Discharge Date Admission Date: February 15, 2024 Subjective Patient is seen and examined at bedside Periorbital swelling, generalized rash much improved No new complaints Denies any blurry vision, eye pain, photophobia, tongue swelling, chest pain, dyspnea, nausea, vomiting, abdominal pain Plan to discharge home today Review of Systems Review of Systems: All systems reviewed & are unremarkable except as noted in Subjective Physical Exam Physical Exam: Physical Exam: Vitals signs as noted above General Appearance:Moderately built and nourished, no apparent distress Head: normocephalic, Atraumatic Eyes: normal inspection, EOMI, periorbital swelling, mild erythema Neck: supple, Trachea midline Respiratory/Chest: Normal breath sounds, CTA, No accessory muscle use Cardiovascular: S1, S2, No murmur Abdomen/GI:Soft, Non tender, Bowel sounds present Extremities/Musculoskeletal:normal inspection, no edema Neurologic/Psych:AAOX3, grossly no focal neurological deficits Skin: normal color, warm,+ erythematous blotchy rash on posterior neck, bilateral under the breast, sacral/anal region Results & Data Results & Data Vital Signs (Past 12 Hours) Vital Signs Temp Pulse Resp BP Pulse Ox O2 Del Method 02/19/24 07:20 36.5 C 57 L 16 155/80 H 97 Room Air
--- NOTE | 2024-02-19 12:41 | Discharge Summary ---
Date of Service February 19, 2024 Admission HPI Per Admitting Provider 63-year-old female with past medical history significant for dyslipidemia presents with swelling and pain around the left eye. Started Sunday but got progressively worse. Left eyelid is significantly swollen. No pain on movement of eyes. No injury to the area. No recent sinus infection. No dental pain. Having headaches. Vision is okay. No runny nose or sore throat. No cough. No difficulty swallowing. No chest pain or shortness of breath. No nausea. No abdominal pain. Normal bowel and bladder movements. Ambulating okay. Hemodynamics are okay. Past medical history. As mentioned above Past surgical history. Dental surgery. Oophorectomy. Total abdominal hysterectomy Social history. . Smoked 0.5 pack a day for 10 years. Alcohol rarely. No drug use. Family history. Father had cancer. Mother had CHF and valvular heart disease. Admission Exam Per Admitting Provider General- Not in acute distress. Head- atraumatic Eyes- Left eye region swollen and mildly erythematous. EOMI, no painful eye movement, vision ok ENT- oropharynx clear Neck- supple, no JVD Lungs- clear to auscultation no wheezing or crackles. Heart- regular rhythm; no murmur, no gallop. Abdomen- normal bowel sounds, soft, nontender, no distension Extremities- no pretibial edema, no erythema seen. Neuro- alert, oriented EOMI; no facial palsy; no dysarthria; moves extremities Principal Diagnosis Bilateral Preseptal cellulitis Suspected allergic erythematous rash Right upper lobe lung opacity/density Discharge Data Allergies Allergy/AdvReac Type Severity Reaction Status Date / Time yellow dye Allergy Hives Verified 02/15/24 20:20 Consultations 02/15/24 19:54 ED Decision to Admit Stat Procedures Performed Laboratory Results WBC 8.84 K/ul (4.8-10.8) 02/18/24 06:06 RBC 3.75 M/uL (4.20-5.40) L 02/18/24 06:06 Hgb 12.9 g/dl (12.0-16.0) 02/18/24 06:06 POC Hgb 13.9 g/dl (12.0-16.0) 02/15/24 18:50 Hct 37.4 % (37.0-47.0) 02/18/24 06:06 POC Hct 41 % (37-47) 02/15/24 18:50 MCV 99.7 fL (80.0-100.0) 02/18/24 06:06 MCH 34.4 pg (25.0-34.0) H 02/18/24 06:06 MCHC 34.5 g/dL (32.0-36.0) 02/18/24 06:06 RDW Std Deviation 44.7 fL (36.4-46.3) 02/18/24 06:06 RDW Coeff of Andrea 12.3 % (11.5-14.5) 02/18/24 06:06 Plt Count 181 K/uL (130-400) 02/18/24 06:06 MPV 9.6 fL (9.4-12.4) 02/18/24 06:06 Immature Gran % (Auto) 0.3 % 02/16/24 05:34 Neut % (Auto) 52.4 % 02/16/24 05:34 Lymph % (Auto) 34.3 % 02/16/24 05:34 [place] % (Auto) 7.2 % 02/16/24 05:34 Eos % (Auto) 5.4 % 02/16/24 05:34 Baso % (Auto) 0.4 % 02/16/24 05:34 Neut # (Auto) 5.03 K/uL (1.40-6.50) 02/16/24 05:34 Lymph # (Auto) 3.29 K/uL (1.20-3.40) 02/16/24 05:34 [place] # (Auto) 0.69 K/uL (0.11-0.59) H 02/16/24 05:34 Eos # (Auto) 0.52 K/uL (0.00-0.50) H 02/16/24 05:34 Baso # (Auto) 0.04 K/uL (0.00-0.20) 02/16/24 05:34 Immature Gran # (Auto) 0.03 K/uL (0.01-0.20) 02/16/24 05:34 POC Sodium 136 mmol/L (135-144) 02/15/24 18:50 Sodium 138 mmol/L (136-145) 02/18/24 06:06 POC Potassium 4.2 mmol/L (3.3-5.0) 02/15/24 18:50 Potassium 4.2 mmol/L (3.5-5.1) 02/18/24 06:06 POC Chloride 102 mmol/L (101-112) 02/15/24 18:50 Chloride 105 mmol/L (98-107) 02/18/24 06:06 Carbon Dioxide 27 mmol/L (21-32) 02/18/24 06:06 POC Total CO2 24 mmol/L (24-31) 02/15/24 18:50 Anion Gap 6 (3-11) 02/18/24 06:06 POC Anion Gap 15.0 mmol/L (16-25) L 02/15/24 18:50 POC BUN 19 mg/dl (7-18) H 02/15/24 18:50 BUN 13 mg/dl (6-23) 02/18/24 06:06 Creatinine 0.76 mg/dl (0.6-1.2) 02/18/24 06:06 POC Creatinine 0.8 mg/dl (0.6-1.3) 02/15/24 18:50 Est Cr Clr Drug Dosing 72.7 ml/min 02/18/24 06:06 Est GFR ( Amer) 96.8 ml/min 02/18/24 06:06 Est GFR (Non-Af Amer) 83.5 ml/min 02/18/24 06:06 BUN/Creatinine Ratio 17.1 (10-20) 02/18/24 06:06 Glucose 98 mg/dl (70-99(Fasting)) 02/18/24 06:06 POC Glucose (other) 117 mg/dl (70-99) H 02/15/24 18:50 Calcium 9.0 mg/dl (8.6-10.3) 02/18/24 06:06 POC Ioniz Calcium Randal 1.18 mmol/l (1.12-1.32) 02/15/24 18:50 Magnesium 1.7 mg/dl (1.7-2.4) 02/17/24 06:02 Procalcitonin < 0.02 ng/ml (0-0.5) 02/17/24 06:02 Urine Color Yellow 02/16/24 04:35 Urine Appearance Turbid (Clear) A 02/16/24 04:35 Urine pH 5.5 (4.5-7.5) 02/16/24 04:35 Ur Specific [place] > 1.045 (1.000-1.030) H 02/16/24 04:35 Urine Protein Trace (Negative) H 02/16/24 04:35 Urine Glucose (UA) Negative (Negative) 02/16/24 04:35 Urine Ketones Negative (Negative) 02/16/24 04:35 Urine Blood 1+ (Negative) H 02/16/24 04:35 Urine Nitrite Positive (Negative) A 02/16/24 04:35 Urine Bilirubin Negative (Negative) 02/16/24 04:35 Urine Urobilinogen Negative (Negative) 02/16/24 04:35 Ur Leukocyte Esterase 3+ (Negative) H 02/16/24 04:35 Urine WBC (Auto) >50 /hpf (0-5) H 02/16/24 04:35 Urine RBC (Auto) 0-2 /hpf (0-2) 02/16/24 04:35 U Hyaline Cast (Auto) 0-2 /lpf (0-2) 02/16/24 04:35 U Epithel Cells (Auto) 6-10 /hpf (0-2) H 02/16/24 04:35 Urine Bacteria (Auto) 2+ (None Seen) H 02/16/24 04:35 Nasal Screen MRSA (PCR) Negative (Negative) 02/16/24 12:[address] 02/15/24 18:44 Exam(s): CT FACIAL With Contrast IV Amt: 93 ml opti 320 EXAM: CT Maxillofacial With Intravenous Contrast CLINICAL HISTORY: Reason for exam: swelling around left eye. TECHNIQUE: Axial computed tomography images of the face with intravenous contrast. CTDI is 7.19 mGy and DLP is 146.09 mGy-cm. Automated exposure control was utilized for the study. A dose lowering technique was utilized adhering to the principles of ALARA. CONTRAST: Patient received 93 ml opti 320 of IV contrast COMPARISON: None. FINDINGS: Diagnostic sensitivity of the exam is reduced by motion and metallic artifacts. Orbits: Significant left periorbital and left preseptal space soft tissue edema and swelling is demonstrated. (series 301 image 51, series 2 image 17). Bilaterally the intraconal and extraconal orbital spaces are unremarkable. Facial bones/joints: No acute fracture. Remaining soft tissues: Unremarkable. Sinuses: Unremarkable. No air-fluid levels. Other findings: At C5-C6: Moderate degenerative disc/endplate spondylitic changes. . IMPRESSION: Motion artifact. Left periorbital and left preseptal space soft tissue edema/swelling. No facial bone acute fracture identified. . Electronically signed by: Jossie Barker MD, DABR 02/15/24 20:13 PM Ordered Studies 02/15/24 18:44 CT face [CT facial bones w con] Stat Hospital Course (1) Preseptal cellulitis of left eye: Patient is a 63-year-old female with past medical history significant for dyslipidemia presents with swelling and pain around the left eye. Started Sunday but got progressively worse. Left eyelid is significantly swollen. No pain on movement of eyes. No injury to the area. No recent sinus infection. No dental pain. Having headaches. Vision is okay. No runny nose or sore throat. No cough. No difficulty swallowing. No chest pain or shortness of breath. No nausea. No abdominal pain. Normal bowel and bladder movements. Ambulating okay. Hemodynamics are okay. Bilateral Preseptal cellulitis Extensive erythematous rash--likely allergic --Face CT:Left periorbital and left preseptal space soft tissue edema/swelling. No facial bone acute fracture identified. -- Nasal MRSA negative -- Empirically on IV Vanco and Rocephin>> discontinue Vanco and add Doxy -- Also on ofloxacin eyedrops -- Admitting team discussed with ophthalmology currently no concern for orbital cellulitis --Discussed with dermatology on 02/16/2024: Possible allergic. Agrees with prednisone, Benadryl. Recommends topical hydrocortisone for face, triamcinolone cream on all other areas for 10 days. Also recommends prednisone taper course over 12 to 14 days Pain control Will recommend to follow-up with allergy immunology as outpatient Received IV fluids Clinically improving. Plan to be discharged home today Advised to follow-up with dermatology, ophthalmology as outpatient Suspected right upper lobe lung mass Lung opacities Can not exclude malignancy --CXR:Diffuse interstitial thickening. Although nonspecific, the appearance favors pulmonary edema or interstitial lung disease. A superimposed infectious process cannot be excluded given lower lung opacities. Vague 3 cm oval-shaped right upper lung density. Radiographic follow-up to ensure resolution is recommended to exclude the possibility of an underlying pulmonary lesion. --CT Head:No acute intracranial hemorrhage, no evidence of acute territorial infarction or other acute intracranial disease process. -- Denies any respiratory symptoms currently Patient refused CT chest--discussed on multiple occasions Was advised to follow-up as outpatient Abnormal urinalysis UTI ruled out Urine culture--negative CODE STATUS Full code Disposition Home Total Time Total Time Spent Total Time Spent (In Minutes): 58 minutes Discharge Plan Discharge Items Patient Disposition: Home - Self-Care Reason For Visit: PRESEPTAL CELLULITIS Discharge Diagnosis: Bilateral Preseptal cellulitis Suspected allergic erythematous rash Right upper lobe lung opacity/density Activity: Per Instructions section Exercise/Sports: Wait until after follow-up appointment Non-emergency contact: Primary Care Provider and Specialist Call non-emergency contact if: you have any medication questions, your symptoms worsen, your pain is concerning for you and you have a fever Follow-up/Referrals: Reyes De La Garza MD [Primary Care Provider] - (Date & Time 02/25/2024 9:00 AM Provider Marilyn Lr MD [facility] ) Han Sue MD [Physician] - (Dr Sue's office is aware of your discharge. They will contact you for a follow up appointment. If you do not receive a phone call from the office, please contact the allergy office for an appointment.) Diet: Heart Healthy Addtl Attending Provider Instructions: Follow-up with your primary care physician on 02/25/2024 9:00 AM Follow-up with dermatology Dr. Sue in 1-2 weeks as recommended Follow-up with your allergy contract consultant in 2 to 3 weeks as recommended Consider following up with your tree deadener as outpatient -- Complete the antibiotic and prednisone tapering course as prescribed --You are incidentally noted to have a lung density on chest x-ray. Discuss with your physician for further evaluation and management as recommended Prednisone tapering course: Start taking prednisone 30 mg daily for 3 days, then take 20 mg daily for 3 days, then 10 mg daily for 3 days and stop Seek immediate medical attention if your symptoms reoccur or worsen Please take all medications as instructed on discharge list below. Please call if you have any questions or problems. You can reach a [facility] hospitalist on duty at [facility] 24 hours a day by calling [phone] Pending Studies at Discharge: No Stand-Alone Forms: [facility], Smoking Cessation Medications and DC Order Prescriptions: New doxycycline hyclate 100 mg Capsule 100 mg PO BID Qty: 12 0RF ofloxacin [Ocuflox] 0.3 % Drops 2 drp ophthalmic (eye) Q4H 6 Days Qty: 10 0RF famotidine [Acid [employer] Agent (famotidine)] 10 mg Tablet 10 mg PO BID Qty: 30 0RF oxycodone-acetaminophen [Percocet] 5-325 mg Tablet 1 tab PO Q8H PRN (Reason: pain) Qty: 12 0RF hydrocortisone 2.5 % Cream 1 applic EXT BID 5 Days Qty: 20 0RF Rx Instructions: Rash around the eyes triamcinolone acetonide 0.1 % Ointment 1 applic EXT BID 5 Days Qty: 30 0RF Rx Instructions: Rash on Back, Under the breast cefuroxime axetil 500 mg tablet 500 mg PO BID Qty: 12 0RF diphenhydramine HCl 12.5 mg/5 mL Elixir 25 mg PO Q6H PRN (Reason: Allergy Symptoms) Qty: 0 0RF Continued prednisone 20 mg tablet 20 mg PO .TAPER UD Rx Instructions: Filled 02/14/2024 , had 3 tabs today Discontinued ketorolac 0.5 % drops 1 drp OPB DIRECTED polymyxin B sulf-trimethoprim 10,000 unit- 1 mg/mL drops 1 drp OPL DIRECTED ketoconazole 2 % cream 1 applic TOPICAL DIRECTED Discharge Orders: Discharge Order (Routine); Ordered 02/19/24 Ordered By: Yovanny Price Admission Data Admit Date/Time: 02/15/24 20:26 Attending Provider: Yovanny Price Admit Provider: Alejandro Bucio Primary Care Provider: Reyes De La Garza Other Providers: Alejandro Bucio
== END 2024-02-19 14:16 | disposition home or self-care (01) | DRG 603 ==
LOC: ED 18:04 → 3E 20:26